=== PATIENT | male | born 1995 | race Caucasian/White ===

== ENCOUNTER 2017-05-22 19:32 | Emergency (ER) | payer SELFPAY ==
[~2017-05-22 19:32] MED LIST: Z.0.NO CURRENT MEDS
[2017-05-22 19:36] VITALS: BP 151/82; PULSE 100; RESP 16; TEMP 98.4; O2SAT 98
== END 2017-05-22 21:39 | disposition left against medical advice (07) ==
LOC: NED 19:32
DX: R10.9 Unspecified abdominal pain (principal); Z53.21 Procedure and treatment not carried out due to patient leaving prior to being seen by health care provider
CPT/HCPCS: 99281